=== PATIENT | male | born 1990 | race Caucasian/White ===

== ENCOUNTER 2024-01-26 12:24 | Emergency (ER) | payer BC, SELFPAY ==
[2024-01-26 12:29] VITALS: BP 133/81; PULSE 87; TEMP 36.8; O2SAT 100; BMI 20.8
--- NOTE | 2024-01-26 12:37 | ED_ITS ---
HPI HPI - General Adult General Chief complaint: Skin/Abscess/Foreign Body Stated complaint: ALLRGIC REACTION TO BEE STING/MOUTH Time Seen by Provider: 01/26/24 12:35 Source: patient Mode of arrival: walk-in Limitations: no limitations History of Present Illness HPI narrative: 33-year-old male presents to the emergency department for bee sting. He was stung on his upper lip about half an hour ago and has swelling to that upper lip but not the tongue. He also has redness throughout most of the skin and has some hives. Symptoms have been continuous. Related Data Previous Rx's ?Medication ?Instructions ?Recorded prednisone 20 mg tablet 20 mg PO BID 5 days #10 tabs 01/26/24 Allergies Allergy/AdvReac Type Severity Reaction Status Date / Time amoxicillin AdvReac Severe Unknown Verified 01/26/24 12:32 Opioid HPI Opioid Management Most Recent Opioid Data: No Data to Display Review of Systems ROS Narrative A ten point review of systems is negative except as noted above. PFSH PFSH Social History Little interest or pleasure in doing things: not at all Feeling down, depressed, or hopeless: not at all Exam Narrative Exam Narrative: Nurses note and vital signs reviewed and patient is not hypoxic. General: The patient appears in no apparent distress. Skin: Warm, dry, no pallor noted. Most of the skin is erythematous. He has some hives on his back. Head: Normocephalic, atraumatic Eye: Normal conjunctiva, no drainage Ears, Nose, Mouth, and Throat: oral mucosa is moist. Nares patent. Upper lip is swollen. The tongue and lower lip are not swollen. Cardiovascular: Regular Rate and Rhythm Respiratory: Patient is in no distress, no accessory muscle use, lungs are clear to auscultation, no wheezing, rales or rhonchi Back: non-tender GI: Soft and nontender Musculoskeletal: The patient has no evidence of calf tenderness, no pitting edema, symmetrical pulses noted bilaterally Neurological: Awake and alert Psychiatric: Cooperative Constitutional Vital Signs, click to edit/add: Last Vital Signs Temp 98.2 F 01/26/24 12:29 Pulse 87 01/26/24 12:29 Resp 16 01/26/24 12:56 BP 133/81 01/26/24 12:29 Pulse Ox 99 01/26/24 12:56 O2 Del Method Room Air 01/26/24 12:56 Course Vital Signs Vital signs: Vital Signs Temperature 98.2 F 01/26/24 12:29 Pulse Rate 87 01/26/24 12:29 Respiratory Rate 18 01/26/24 12:29 Blood Pressure 133/81 01/26/24 12:29 Pulse Oximetry 100 01/26/24 12:29 Oxygen Delivery Method Room Air 01/26/24 12:29 Temperature 98.2 F 01/26/24 12:29 Pulse Rate 87 01/26/24 12:29 Respiratory Rate 16 01/26/24 12:56 Blood Pressure 133/81 01/26/24 12:29 Pulse Oximetry 99 01/26/24 12:56 Oxygen Delivery Method Room Air 01/26/24 12:56 Medical Decision Making MDM Narrative Medical decision making narrative: The patient was given IV Solu-Medrol and Benadryl and is improved. He is able to be discharged home at this point and was prescribed prednisone. Treatment diagnosis and follow-up were discussed with the patient. Discharge Plan Discharge Chief Complaint: Skin/Abscess/Foreign Body Clinical Impression: Allergic reaction to bee sting Patient Disposition: Home, Self-Care Time of Disposition Decision: 13:34 Condition: Good Mode of Transportation: Private Vehicle Prescriptions / Home Meds: New prednisone 20 mg tablet 20 mg PO BID 5 Days Qty: 10 0RF Print Language: Macedonian Instructions: Insect Bite or Sting (ED) Additional Instructions: Take Benadryl [id number] for itching Referrals: Physician,Non-Staff, MD [Primary Care Provider] - 1 week
[2024-01-26] MEDS: METHYLPREDNISOLONE SOD SUCC PF 125 MG/2 ML VIAL IVP (12:43)
[2024-01-26] MEDS: DIPHENHYDRAMINE HCL 50 MG/ML VIAL IV (12:43)
[2024-01-26 12:56] VITALS: O2SAT 99
== END 2024-01-26 14:02 | disposition home or self-care (01) ==
PROVIDERS: Emergency Provider Emergency Medicine
DX: T63.441A Toxic effect of venom of bees, accidental (unintentional), initial encounter (principal); R22.0 Localized swelling, mass and lump, head; L50.8 Other urticaria
CPT/HCPCS: 96374; 96375; 99284; J1200; J2919